=== PATIENT | male | born 1950 | race Caucasian/White ===

== ENCOUNTER 2017-10-17 11:37 | Day surgery (SDC) | payer MEDICARE, OTHER ==
[~2017-10-17 11:37] MED LIST: PROPOFOL 200 MG/20 ML VIAL As Ordered
[2017-10-17] MEDS: NS 1,000 ML IV (11:45)
== END 2017-10-17 13:40 | disposition home or self-care (01) ==
LOC: M OPP 11:37
DX: Z12.11 Encounter for screening for malignant neoplasm of colon (principal); Z86.010 Personal history of colon polyps; I10 Essential (primary) hypertension; E78.5 Hyperlipidemia, unspecified; E11.9 Type 2 diabetes mellitus without complications; M19.90 Unspecified osteoarthritis, unspecified site; G47.30 Sleep apnea, unspecified; R06.83 Snoring; Z87.442 Personal history of urinary calculi; N40.1 Benign prostatic hyperplasia with lower urinary tract symptoms; Z79.899 Other long term (current) drug therapy; Z79.84 Long term (current) use of oral hypoglycemic drugs; E66.9 Obesity, unspecified
CPT/HCPCS: G0105

== ENCOUNTER → 2020-03-05 | Outpatient (REF) | payer MEDICARE, OTHER ==
[~2020-03-05] MED LIST changes: +ATOR1TAB21 PO; +FINA5TAB2 PO; +LISI-538 PO; +METF500T13 PO; -PROPOFOL 200 MG/20 ML VIAL As Ordered
== END ==
LOC: M LAB REF 16:03
PROVIDERS: ATTEND Physician Assistant
DX: Z11.59 Encounter for screening for other viral diseases (principal)

== ENCOUNTER → 2022-09-05 | Outpatient (REF) | payer MEDICARE, OTHER ==
[~2022-09-05] MED LIST changes: -LISI-538 PO; +LISI20TA33 PO
[2022-09-05 18:49] LABS: FREE T4 1.01 NG/DL (0.89-1.76); THYROID STIMULATING HORMONE 0.627 uIU/ML (0.55-4.78)
[2022-09-05 18:51] LABS: FOLATE 9.14 NG/ML (>5.4)
== END ==
LOC: M SFHCCLAY 15:08
PROVIDERS: ATTEND Family Medicine
DX: R53.83 Other fatigue (principal)

== ENCOUNTER 2022-10-26 10:15 | Day surgery (SDC) | payer MEDICARE, OTHER ==
[~2022-10-26] VITALS: Ht 172.7 cm; Wt 97.5 kg
[~2022-10-26 10:15] MED LIST changes: +ATOR1TAB19 PO; +MELO15TA28 PO; +NS 1,000 ML IV ONE
[2022-10-26] MEDS ORDERED: LIDOCAINE 2% 100MG/5ML SDV (FOR ANES.) As Ordered ONE (10:54)
[2022-10-26] MEDS ORDERED: propofoL 200 MG/20 ML VIAL As Ordered ONE (10:54)
[2022-10-26 11:16] VITALS: TEMP 98.9
[2022-10-26 11:27] VITALS: BP 123/64; O2SAT 96
== END 2022-10-26 11:27 | disposition home or self-care (01) ==
LOC: M OPP 10:15
PROVIDERS: ATTEND Surgery
DX: Z12.11 Encounter for screening for malignant neoplasm of colon (principal); Z86.010 Personal history of colon polyps; K64.9 Unspecified hemorrhoids; Z87.891 Personal history of nicotine dependence; Z79.02 Long term (current) use of antithrombotics/antiplatelets; Z79.84 Long term (current) use of oral hypoglycemic drugs; Z79.891 Long term (current) use of opiate analgesic; Z79.899 Other long term (current) drug therapy

== ENCOUNTER → 2023-09-07 | Outpatient (REF) | payer MEDICARE, OTHER ==
[~2023-09-07] MED LIST changes: -NS 1,000 ML IV ONE
[2023-09-07 12:39] LABS: HEMATOCRIT 46.6 % (42.0-52.0); HEMOGLOBIN 15.7 g/dl (13.5-17.5); MEAN CORPUSCULAR HGB CONC 33.7 g/dl (32.0-36.5); MEAN CORPUSCULAR VOLUME 92.1 fl (80.0-96.0); PLATELET COUNT, AUTOMATED 209 10^3/uL (150-450); RED BLOOD COUNT 5.06 10^6/uL (4.30-6.10); WHITE BLOOD COUNT 4.5 10^3/uL (4.0-10.0)
[2023-09-07 12:58] LABS: HEMOGLOBIN A1c 5.6 % (4.0-6.0)
[2023-09-07 13:08] LABS: ALBUMIN 3.8 G/DL (3.2-5.2); ALKALINE PHOSPHATASE 72 U/L (46-116); ALT/SGPT 13 U/L (7.0-40); AST/SGOT 16 U/L (<34); BILIRUBIN,TOTAL 0.7 MG/DL (0.3-1.2); BLOOD UREA NITROGEN 22 MG/DL (9-23); CALCIUM LEVEL 9.3 MG/DL (8.3-10.6); CARBON DIOXIDE LEVEL 31 MMOL/L (20-31); CHLORIDE LEVEL 107 MMOL/L (98-107); CHOLESTEROL LEVEL 132 MG/DL (<200); GLOMERULAR FILTRATION RATE > 60.0 (>42); GLUCOSE, FASTING 112 MG/DL (74-106); HDL CHOLESTEROL 37.7 MG/DL (>40); LDL CHOLESTEROL 79.5 MG/DL (<100); NON-HDL-C 94.3 MG/DL; POTASSIUM SERUM 5.2 MMOL/L (3.5-5.1); SODIUM LEVEL 141 MMOL/L (136-145); TOTAL PROTEIN 6.8 G/DL (5.7-8.2); TRIGLYCERIDES LEVEL 74 MG/DL (<150)
== END ==
LOC: M SFHCCLAY 08:26
PROVIDERS: ATTEND Family Medicine
DX: E78.5 Hyperlipidemia, unspecified (principal); Z86.010 Personal history of colon polyps; G47.33 Obstructive sleep apnea (adult) (pediatric); R73.03 Prediabetes; Z12.5 Encounter for screening for malignant neoplasm of prostate
CPT/HCPCS: 80053; 80061; 83036; 85027; G0103

== ENCOUNTER → 2024-12-24 | Outpatient (REF) | payer MEDICARE, OTHER ==
[2024-12-24 19:11] LABS: TOTAL 25(OH) VITAMIN D 34.3 NG/ML (20.0-100.0); VITAMIN B12 LEVEL 382.0 PG/ML (211-911)
[2024-12-24 19:12] LABS: FREE T4 1.18 NG/DL (0.89-1.76)
== END ==
LOC: M SFHCADAM 12:44
PROVIDERS: ATTEND Family Medicine
DX: I11.9 Hypertensive heart disease without heart failure (principal); E78.5 Hyperlipidemia, unspecified; Z79.899 Other long term (current) drug therapy; R53.83 Other fatigue

== ENCOUNTER → 2025-02-03 | Outpatient (REF) | payer MEDICARE, OTHER | LOC: M LABDRAWC 17:23 | PROVIDERS: ATTEND Urology | DX: N40.1 Benign prostatic hyperplasia with lower urinary tract symptoms (principal) ==